=== PATIENT | male | born 1940 | race Caucasian/White ===

== ENCOUNTER 2017-08-31 18:13 | Emergency (ER) | payer OTHER, MEDICARE ==
[~2017-08-31] VITALS: Ht 180.3 cm; Wt 72.6 kg
[~2017-08-31 18:13] MED LIST: ASPI-587 PO; EYE; vitamines PO
--- OUTSIDE RECORDS SUMMARY | 2017-08-31 18:27 | XMS REPORT | Continuity of Care Document ---
Author Author [facility] Organization [facility] Address Unknown Phone Unavailable Allergies Active Description Code Type Severity Reaction Onset Reported/Identified Relationship to Patient Clinical Status Yes NKANo Known Allergies NKA Miscellaneous Allergy Mild N/A 11/05/2008 Medications There is no data. Problems Date Dx Coded Attending Type Code Diagnosis Diagnosed By 03/04/2014 Ot 413.9 03/04/2014 Ot 786.05 03/04/2014 Ot V58.66 03/04/2014 Ot V58.69 03/04/2014 Ot V72.63 03/04/2014 Ot V72.81 03/04/2014 Ot V74.8 03/04/2014 Ot 413.9 03/04/2014 Ot 786.05 03/04/2014 Ot V58.66 03/04/2014 Ot V58.69 03/04/2014 Ot V72.63 03/04/2014 Ot V72.81 03/04/2014 Ot V74.8 03/05/2014 FATIMAH ROBLERO MD Ot V16.3 03/05/2014 FATIMAH ROBLERO MD Ot V76.51 Procedures There is no data. Results There is no data. Encounters ACCT No. Visit Date/Time Discharge Status Pt. Type Provider Facility Loc./Unit Complaint [id number] 03/05/2014 07:46:00 03/05/2014 10:30:00 DIS Outpatient FATIMAH ROBLERO MD [facility] [id number] 03/04/2014 09:18:00 03/04/2014 23:59:59 CLS Outpatient FATIMAH ROBLERO MD [facility] PREOP [id number] 03/04/2014 09:19:00 Document Registration [id number] 03/04/2014 09:19:00 Document Registration [id number] 07/11/2009 09:10:00 Document Registration
[2017-08-31] MEDS ORDERED: KETOROLAC 30 MG/ML VIAL IM STA (19:36)
--- NOTE | 2017-08-31 19:49 | ED Neck-Back Pain/Injury ---
General Chief Complaint: Head/Cervical Problems Stated Complaint: PAIN IN NECK, CAME ON 2 HRS AGO Source of Information: Patient Exam Limitations: No Limitations History of Present Illness Date Seen by Provider: Aug 31, 2017 Time Seen by Provider: 19:25 Initial Comments Here with report of neck pain. States it started about 2 hours ago but actually admits that yesterday he was trimming trees and was looking up and felt a pain in the middle of his neck and so he actually quit doing that he was doing came down off a ladder. He is able to move his neck in full range of motion last night but today about 2 hours ago had acute onset of central upper neck pain. No significant radiation. Denies weakness or numbness anywhere. Denies other potential injury. No history of falls. Otherwise healthy individual. Has not taken anything for the pain. Timing/Duration: 24 Hours, Changing Over Time, Intermittent Severity: Moderate Pain/Injury Location: Neck Radiation: Other (none) Method of Injury: Unknown Modifying Factors: Improves With Immobilization; Worse With Movement Associated Symptoms: No muscle spasms, No fever, No weakness, No numbness in legs/feet, No tingling in legs/feet, No sensory/motor loss, No lower back pain, No loss of bladder control, No loss of bowel control Allergies and Home Medications Allergies Coded Allergies: NKANo Known Allergies (Unverified Allergy, Mild, 11/05/08) Home Medications Aspirin 81 Mg Tablet.dr, 81 MG PO DAILY, (Reported) [vitamines] , 1 PO DAILY, (Reported) Patient Home Medication List Home Medication List Reviewed: Yes Constitutional: see HPI; No chills, No fever, No weakness Respiratory: no symptoms reported Cardiovascular: no symptoms reported Gastrointestinal: no symptoms reported Genitourinary: no symptoms reported Musculoskeletal: No muscle pain, No muscle weakness; neck pain Psychiatric/Neurological: See HPI Past Nsloxma-Tnpmom-Njdkqv Hx Past Med/Social Hx: Reviewed Nursing Past Med/Soc Hx, Reviewed and Corrections made Patient Social History Alcohol Use: Denies Use Recreational Drug Use: No Smoking Status: Never a Smoker Recent Foreign Travel: No Contact w/Someone Who Travel: No Immunizations Up To Date Date of Pneumonia Vaccine: Mar 05, 2010 Date of Influenza Vaccine: Feb 03, 2014 Past Medical History Surgeries: Yes Appendectomy Respiratory: No Cardiac: No Neurological: No Gastrointestinal: No Family Medical History No Pertinent Family Hx Physical Exam Vital Signs Vital Signs - First Documented 08/31/17 19:57 Temp 98.6 Pulse 62 Resp 14 B/P (MAP) 161/88 (112) Pulse Ox 98 O2 Delivery Room Air Capillary Refill : General Appearance: No Apparent Distress, WD/WN Neck: Supple, Tender Lateral (mild C2/C3 area); No Tender Midline; Other (good range of motion but somewhat limited by pain) Cardiovascular: Regular Rate, Rhythm, No Murmur Respiratory: Lungs Clear, Normal Breath Sounds Gastrointestinal: No Pulsatile Mass (is a 24(is 40 so right upper number [phone] chart), Non Tender Extremity: Normal Inspection, Normal Range of Motion, Non Tender, No Calf Tenderness Neurologic/Psychiatric: Alert, Oriented x3, No Motor/Sensory Deficits; No Motor Weakness, No Sensory Deficit Skin: Normal Color, Warm/Dry Progress/Results/Core Measures Results/Orders My Orders Orders - MELITA KAMARA MD Ketorolac Injection (Toradol Injection) (08/31/17 19:36) Ct Cervical Spine Wo (08/31/17 19:36) Vital Signs/I&O 08/31/17 19:57 Temp 98.6 Pulse 62 Resp 14 B/P (MAP) 161/88 (112) Pulse Ox 98 O2 Delivery Room Air Progress Progress Note : Progress Note Seen and evaluated. CT scan of the C-spine ordered. Toradol 30 mg IM ordered. Monitor patient. 2054: Much improved after Toradol. Discharged home with return precautions. Patient verbalize understanding instructions and agreement with plan. We will do a short course of outpatient steroids and patient will follow up with Dr. Ramirez for further evaluation and referral as needed. Diagnostic Imaging Diagonstic Imaging: CT Plain Films/CT/US/NM/MRI: c-spine Comments NAME: GUNNAR BROWNING III MED REC#: [id number] PT STATUS: REG ER : 1940 PHYSICIAN: MELITA KAMARA MD ADMIT DATE: 08/31/17/ER Draft Date of Exam:08/31/17 CT CERVICAL SPINE WO PROCEDURE: CT cervical spine without contrast. TECHNIQUE: Multiple contiguous axial images were obtained through the cervical spine without the use of intravenous contrast. Sagittal and coronal reformations were then performed. INDICATION: Neck pain. No history of trauma. FINDINGS: Sagittal and coronal reformatted images show straightening of the normal lordosis. Alignment is otherwise good. Body heights are well-maintained without compression fracture. The atlantoaxial joint is intact. There is degenerative cervical disc disease at C5-C6 and C6-C7 with moderate hypertrophic osteophyte formation, anteriorly. The facets show good alignment with mild diffuse degenerative disease. There is no evidence of high-grade central canal stenosis. There is mild stenosis at the C5-C6 level due to hypertrophic endplate changes. The surrounding soft tissues appear normal with mild calcification of the carotid arteries. IMPRESSION: Straightening of normal lordotic curve secondary to moderate degenerative cervical disc disease centered at C5-C6 and C6-C7. This is causing mild stenosis of the central canal at C5-C6. Dictated on workstation # [id number] Dict: 08/31/172039 Trans: 08/31/172044 [facility] [id number] Interpreted by: AVRIL PLATT MD Electronically signed by: Departure Impression Primary Impression: Neck pain Disposition: 01 HOME, SELF-CARE Condition: Improved Departure-Patient Inst. Decision time for Depature: 20:58 Referrals: BETHEL RAMIREZ MD (PCP/Family) Primary Care Physician Patient Instructions: Degenerative Disc Disease (DC) Add. Discharge Instructions: All discharge instructions reviewed with patient and/or family. Voiced understanding. You may take Aleve or the generic one tablet twice daily as needed for pain. You may take acetaminophen/Tylenol 1000 mg every 8 hours as needed for pain as well. Follow up with Dr. Ramirez this week for recheck and further evaluation. Take other medications as prescribed. Return for worse pain, fever, vomiting, weakness, breathing problems or other concerns as needed. Scripts Prednisone (Prednisone) 20 Mg Tab 40 MG PO DAILY, #8 TAB 0 Refills Prov: MELITA KAMARA MD 08/31/17 Copy Copies To 1: BETHEL RAMIREZ MD, TIMOTHY D MD Aug 31, 2017 19:49
--- NOTE | 2017-08-31 20:46 | Diagnostic Imaging Report ---
PROCEDURE: CT cervical spine without contrast. TECHNIQUE: Multiple contiguous axial images were obtained through the cervical spine without the use of intravenous contrast. Sagittal and coronal reformations were then performed. INDICATION: Neck pain. No history of trauma. FINDINGS: Sagittal and coronal reformatted images show straightening of the normal lordosis. Alignment is otherwise good. Body heights are well-maintained without compression fracture. The atlantoaxial joint is intact. There is degenerative cervical disc disease at C5-C6 and C6-C7 with moderate hypertrophic osteophyte formation, anteriorly. The facets show good alignment with mild diffuse degenerative disease. There is no evidence of high-grade central canal stenosis. There is mild stenosis at the C5-C6 level due to hypertrophic endplate changes. The surrounding soft tissues appear normal with mild calcification of the carotid arteries. IMPRESSION: Straightening of normal lordotic curve secondary to moderate degenerative cervical disc disease centered at C5-C6 and C6-C7. This is causing mild stenosis of the central canal at C5-C6. Dictated by: Dictated on workstation # [id number]
[2017-08-31] MEDS ORDERED: PRD20T PO (21:00)
[2017-08-31 21:11] VITALS: BP 161/88
== END 2017-08-31 21:10 | disposition home or self-care (01) ==
LOC: EDUNIT# 18:13 → ER 18:15
DX: M54.2 Cervicalgia (principal); Z90.49 Acquired absence of other specified parts of digestive tract; Z79.82 Long term (current) use of aspirin
CPT/HCPCS: 72125; 96372

== ENCOUNTER 2021-12-07 08:36 | Outpatient (CLI) | payer MEDICARE, OTHER ==
[~2021-12-07] VITALS: Ht 180.3 cm; Wt 73.5 kg
[~2021-12-07 08:36] MED LIST changes: +PRD20T PO
[2021-12-07 09:05] VITALS: BP 177/81
[2021-12-07 09:10] VITALS: BP 177/81
[2021-12-07] MEDS ORDERED: BEBTELOVIMAB 175 MG/2 ML VIAL IV ONE (09:30)
== END 2021-12-07 09:56 | disposition home or self-care (01) ==
LOC: INFUSION 08:36
PROVIDERS: ATTEND Nurse Practitioner Family
DX: U07.1 COVID-19 (principal)